=== PATIENT | male | born 1990 | race Caucasian/White ===

== ENCOUNTER 2017-03-25 17:45 | Emergency (ER) | payer SELFPAY ==
[~2017-03-25] VITALS: Ht 172.7 cm; Wt 75.3 kg
[2017-03-25 17:50] VITALS: BP 121/65
== END 2017-03-25 19:19 | disposition left against medical advice (07) ==
LOC: ED 19:13
DX: S61.219A Laceration without foreign body of unspecified finger without damage to nail, initial encounter (principal); Z53.21 Procedure and treatment not carried out due to patient leaving prior to being seen by health care provider; X58.XXXA Exposure to other specified factors, initial encounter; Y93.89 Activity, other specified; Y92.89 Other specified places as the place of occurrence of the external cause; Y99.8 Other external cause status

== ENCOUNTER 2017-04-06 08:28 | Emergency (ER) | payer MEDICAID ==
[~2017-04-06] VITALS: Ht 172.7 cm; Wt 75.5 kg
[2017-04-06 08:30] VITALS: BP 117/73
[2017-04-06] MEDS ORDERED: DIPH,PERTUSS(ACELL),TET VAC/PF 0.5 ML IM-VACC ONE ×2 (09:29→09:30)
[2017-04-06] MEDS ORDERED: BACITRACIN ZINC OINT 500U/GM, 0.9 GM ONE (10:35)
== END 2017-04-06 10:42 | disposition home or self-care (01) ==
LOC: ED 10:30
DX: S61.217A Laceration without foreign body of left little finger without damage to nail, initial encounter (principal); S09.90XA Unspecified injury of head, initial encounter; L03.012 Cellulitis of left finger; Y08.89XA Assault by other specified means, initial encounter; Y93.89 Activity, other specified; Y99.8 Other external cause status; Y92.89 Other specified places as the place of occurrence of the external cause
CPT/HCPCS: 90471; 90715

== ENCOUNTER 2017-06-06 19:22 | Emergency (ER) | payer MEDICAID ==
[~2017-06-06] VITALS: Ht 172.7 cm; Wt 72.7 kg
[2017-06-06 19:30] VITALS: BP 116/68
[2017-06-06] MEDS ORDERED: IBUPROFEN 200 MG TABLET ONE (19:46)
[2017-06-06] MEDS ORDERED: IBUPROFEN 200 MG TABLET PO ONE (20:00)
== END 2017-06-06 20:23 | disposition home or self-care (01) ==
LOC: ED 20:00
DX: M79.1 Myalgia (principal); F15.10 Other stimulant abuse, uncomplicated; F17.200 Nicotine dependence, unspecified, uncomplicated
CPT/HCPCS: 36415; 80047; 99283

== ENCOUNTER 2021-01-27 10:19 | Emergency (ER) | payer MEDICAID ==
[~2021-01-27] VITALS: Ht 172.7 cm; Wt 80.1 kg
[2021-01-27 10:35] VITALS: BP 138/65
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
--- NOTE | 2021-01-27 11:06 | NUR ---
DISCHARGE INSTRUCTIONS REVIEWED WITH PT. ALL QUESTIONS ANSWERED AT THIS TIME.
== END 2021-01-27 11:11 | disposition home or self-care (01) ==
LOC: ED 11:02
DX: Z00.00 Encounter for general adult medical examination without abnormal findings (principal); F17.200 Nicotine dependence, unspecified, uncomplicated
CPT/HCPCS: 99283